=== PATIENT | male | born 1960 | race Two or more races ===

== ENCOUNTER 2019-01-01 13:04 | Inpatient (IN) | payer OTHER ==
[~2019-01-01] VITALS: Ht 165.1 cm; Wt 72.0 kg
[2019-01-01] MEDS ORDERED: MAGNESIUM HYDROXIDE SUSPENSION 30 ML UDCUP PO PRN (13:45)
[2019-01-01] MEDS ORDERED: ACETAMINOPHEN 325 MG TABLET PO PRN (13:45)
[2019-01-01 14:00] LABS: BASOPHILS % (AUTO) 0.3 % (0.0-2.0); EOSINOPHILS % (AUTO) 0.5 % (1.0-6.0); HEMATOCRIT 43.8 % (41-53); HEMOGLOBIN 14.8 g/dL (13.5-17.5); LYMPHOCYTES # (AUTO) 1.3 K/uL (1.0-4.8); LYMPHOCYTES % (AUTO) 17.6 % (22.0-44.0); MEAN CORPUSCULAR HEMOGLOBIN 28.8 pg (26.0-34.0); MEAN CORPUSCULAR HGB CONC 33.7 G/dL (31.0-37.0); MEAN CORPUSCULAR VOLUME 86 fL (80-100); MONOCYTES # (AUTO) 0.8 K/uL (0.1-1.0); MONOCYTES % (AUTO) 10.6 % (2.0-9.0); PLATELET COUNT (AUTO) 174 K/uL (150-450); RED BLOOD CELL COUNT(AUTO) 5.12 MIL/uL (4.50-5.90); RED CELL DISTRIBUTION WIDTH 13.7 % (11.5-14.5)
[2019-01-01 14:15] LABS: ANION GAP 9 mmol/L (8-16); CALCIUM, TOTAL 9.3 mg/dL (8.8-10.5); CARBON DIOXIDE 25 mmol/L (22-29); CHLORIDE 103 mmol/L (98-107); GLOMERULAR FILTR. RATE CALC > 60 mL/min (>60); GLUCOSE,RANDOM 105 mg/dL (70-110); POTASSIUM 3.6 mmol/L (3.5-5.1); SODIUM SERUM 137 mmol/L (136-145); UREA NITROGEN, BLOOD 13 mg/dL (7-18)
[2019-01-01 14:19] LABS: ALANINE AMINOTRANSFERASE 29 U/L (12-78); ALBUMIN 3.9 g/dL (3.4-5.0); ALKALINE PHOSPHATASE 97 U/L (46-116); ASPARTATE AMINOTRANSFERASE 22 U/L (15-37); TOTAL PROTEIN, SERUM 7.8 g/dL (6.4-8.2)
[2019-01-01] MEDS: MULTIVITAMINS WITH MINERALS, THERAPEUTIC TABLET PO SCH (14:50)
[2019-01-01 16:26] VITALS: BP 142/80
[2019-01-01 20:45] VITALS: BP 139/77
[2019-01-01] MEDS: DOCUSATE SODIUM 100 MG CAPSULE PO SCH (20:53)
[2019-01-02] VITALS (7 sets, daily range): BP systolic 124–143; BP diastolic 67–91
[2019-01-02] MEDS: FAMOTIDINE 20 MG TABLET PO SCH (08:43)
[2019-01-02] MEDS: MULTIVITAMINS WITH MINERALS, THERAPEUTIC TABLET PO SCH (08:43)
[2019-01-02] MEDS: DOCUSATE SODIUM 100 MG CAPSULE PO SCH ×2 (08:43→20:45)
[2019-01-02] MEDS: ASPIRIN 81 MG CHEWABLE TABLET PO SCH (08:44)
[2019-01-03 04:52] VITALS: BP 144/92
[2019-01-03 07:36] VITALS: BP 141/81
[2019-01-03] MEDS: MULTIVITAMINS WITH MINERALS, THERAPEUTIC TABLET PO SCH (08:23)
[2019-01-03] MEDS: ASPIRIN 81 MG CHEWABLE TABLET PO SCH (08:23)
[2019-01-03] MEDS: FAMOTIDINE 20 MG TABLET PO SCH (08:23)
[2019-01-03] MEDS: DOCUSATE SODIUM 100 MG CAPSULE PO SCH (08:23)
[2019-01-03 12:00] VITALS: BP 142/88
[2019-01-03] MEDS ORDERED: MULT-1239 PO ×2 (12:46→12:54)
== END 2019-01-03 15:55 | DRG 869 ==
LOC: EMS 13:05 → 6S 15:30
PROVIDERS: ADMIT Internal Medicine; ATTEND Internal Medicine
DX: A30.9 Leprosy, unspecified (principal); M19.90 Unspecified osteoarthritis, unspecified site
CPT/HCPCS: 86592